=== PATIENT | female | born 1965 | race Caucasian/White ===

== ENCOUNTER 2017-12-29 16:49 | Emergency (ER) | payer MEDICARE, OTHER ==
[2017-12-29 17:15] VITALS: TEMP 97.8
[2017-12-29] MEDS ORDERED: SODIUM CHLORIDE 0.9% 500 ML 500 ML IV STA (17:17)
[2017-12-29] MEDS ORDERED: LIDOCAINE 1%-EPI 1:100,000 30 ML VIAL SQ STA (17:19)
[2017-12-29] MEDS ORDERED: LIDOCAINE 1% INJ 10MG/ML (20 ML MDV) SQ ONE (17:19)
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
[2017-12-29 18:02] LABS: Basophils # (A) 0.1 k/uL (0-0.2); Basophils % (A) 0 %; Eosinophils # (A) 0.3 k/uL (0-0.7); Eosinophils % (A) 2 %; HCT 43.5 % (34.0-46.0); HGB 14.7 gm/dL (11.4-16.0); Lymphocytes # (A) 1.5 k/uL (1.0-4.8); Lymphocytes % (A) 9 %; MCH 30.2 pg (25.0-35.0); MCHC 33.8 g/dL (31.0-37.0); MCV 89.3 fL (80.0-100.0); Mean Platelet Volume 7.9; Monocytes # (A) 0.4 k/uL (0-1.0); Monocytes % (A) 2 %; Neutrophils % (A) 86 %; Platelet Count 267 k/uL (150-450); RBC 4.87 m/uL (3.80-5.40); RDW 13.1 % (11.5-15.5); WBC 17.4 k/uL (3.8-10.6)
[2017-12-29 18:12] LABS: ALT 38 U/L (9-52); AST 58 U/L (14-36); Albumin 3.9 g/dL (3.5-5.0); Alcohol <10 mg/dL; Alkaline Phosphatase 101 U/L (38-126); Anion Gap 10 mmol/L; Blood Urea Nitrogen 18 mg/dL (7-17); Calcium 9.1 mg/dL (8.4-10.2); Carbon Dioxide 34 mmol/L (22-30); Chloride 90 mmol/L (98-107); Glucose 120 mg/dL (74-99); Potassium 3.5 mmol/L (3.5-5.1); Sodium 134 mmol/L (137-145); Total Bilirubin 0.7 mg/dL (0.2-1.3); Total Protein 7.2 g/dL (6.3-8.2)
[2017-12-29 18:23] LABS: Partial Thromboplastin Time 22.5 sec (22.0-30.0); Prothrombin Time 9.8 sec (9.0-12.0)
[2017-12-29 18:31] LABS: Creatine Kinase MB 31.9 ng/mL (0.0-2.4); Troponin I <0.012 ng/mL (0.000-0.034)
--- NOTE | 2017-12-29 18:41 | CT ---
EXAMINATION TYPE: CT brain yessi eldridge DATE OF EXAM: 12/29/2017 COMPARISON: None HISTORY: HEAD LACERATION AFTER FALL INJURY CT DLP: 1518 mGycm Automated exposure control for dose reduction was used. TECHNIQUE: CT scan of the head and cervical spine are performed without contrast. FINDINGS: Ventricles of normal size. There is no mass effect nor midline shift. There is no sign of intracranial hemorrhage. The calvarium is intact. There is large left frontal scalp hematoma and lac eration. There is 2 cm mucous retention cyst left maxillary sinus. Cervical vertebra have normal spacing and alignment. Posterior elements are intact. Facet joints are intact. Skull base appears intact. There is no evidence of cervical spine fracture. There is minimal anterior spurring at C4-5. IMPRESSION: Negative CT scan of the brain. Left frontal scalp hematoma and laceration. Negative CT scan cervical spine.
--- NOTE | 2017-12-29 18:47 | CT ---
EXAMINATION TYPE: CT ChestAbdPelvis w con DATE OF EXAM: 12/29/2017 COMPARISON: None HISTORY: HEAD LACERATION AFTER FALL INJURY CT DLP: 1118 mGycm Automated exposure control for dose reduction was used. CONTRAST: CT scan of the chest, abdomen and pelvis is performed without Oral Contrast and with IV Contrast, pat ient injected with 100 mL of Isovue 300. FINDINGS: There is coarse interstitial infiltrate in both lungs with some degree of atelectasis. Thoracic aorta appears intact. There is no evidence of aneurysm or dissection. I see no filling defects in the pulm onary arteries. Liver and spleen appear normal. There is calcification in the wall of the gallbladder. The bile ducts are not dilated. There is no adrenal mass. Kidneys show symmetric contrast opacification. There is no hydronephrosis. Ureters are not dilated. There is mild small bowel mesenteric edema. There is no retroperitoneal ebonie opathy. Abdominal aorta is intact. Bladder distends smoothly. There is no inguinal hernia. I see no intestinal wall thickening. There ar e no dilated loops. There is no sign of free air. There is no ascites. Appendix is not definitely see n. There is no sign of appendicitis. The thoracic and lumbar vertebra appear intact. The bony pelvis appears intact. Hip joints are intact . I see no rib fracture. IMPRESSION: There is mild pulmonary interstitial infiltrates and subsegmental atelectasis. No fractur e seen. Mild small bowel mesenteric edema of uncertain significance. Gallbladder wall calcification that is consistent with diabetes. No gallbladder mass seen.
[2017-12-29 18:56] LABS: Creatine Kinase 1181 U/L (30-135)
[2017-12-29 19:10] VITALS: RESP 16
--- NOTE | 2017-12-29 19:12 | XR ---
EXAMINATION TYPE: XR shoulder complete LT DATE OF EXAM: 12/29/2017 COMPARISON: NONE HISTORY: Shoulder pain TECHNIQUE: 3 views FINDINGS: I see no fracture nor dislocation. There is a 2.3 similar rounded area of osteosclerosis in the humeral neck. The joint spaces are normal. IMPRESSION: Osteosclerotic focus in the left humeral neck of uncertain significance. There is no expa nsion. The appearance is nonspecific. No fracture seen.
[2017-12-29 19:36] LABS: Appearance,Urine Clear (Clear); Bilirubin,Urine Negative (Negative); Blood,Urine Moderate (Negative); Color,Urine Yellow; Glucose,Urine (UA) Negative (Negative); Ketones,Urine Trace (Negative); Leukocyte Esterase,Urine Negative (Negative); Mucus,Urine Rare /hpf; Nitrite,Urine Negative (Negative); Protein,Urine Trace (Negative); RBC,Urine 6 /hpf (0-5); Squamous Epithelial Cell,Urine 1 /hpf (0-4); Urobilinogen,Urine <2.0 mg/dL (<2.0); WBC,Urine 1 /hpf (0-5)
[2017-12-29 19:39] LABS: Amphetamine Screen,Urine Not Detected (NotDetected); Barbiturate Screen,Urine Not Detected (NotDetected); Benzodiazepines Screen,Urine Not Detected (NotDetected); Cocaine Screen,Urine Not Detected (NotDetected); Methadone Screen, Urine Not Detected (NotDetected); Opiate Screen,Urine Not Detected (NotDetected); Oxycodone Screen, Urine Not Detected (NotDetected); Phencyclidine Screen,Urine Not Detected (NotDetected); Tricyclic Antidepressant,Urine Not Detected (NotDetected); Urn Cannabinoid Scrn Not Detected (NotDetected)
[2017-12-29 19:45] LABS: Specific Gravity,Urine 1.048 (1.001-1.035)
--- NOTE | 2017-12-29 20:21 | CT ---
EXAMINATION TYPE: CT facial bones wo con DATE OF EXAM: 12/29/2017 COMPARISON: None HISTORY: facial lacerations after fall injury CT DLP: mGycm Automated exposure control for dose reduction was used. TECHNIQUE: CT scan of the sinuses is performed without contrast, axial images are obtained, coronal r eformatted images are also reviewed. FINDINGS: There is 1.2 cm mucous retention cyst in the left maxillary sinus. There is minimal right m axillary sinus mucosal thickening. There is bilateral patency of the ostiomeatal complex. There is no evidence of a blowout fracture. Orbital margins are intact. Mandibular ring appears intact. The temp oromandibular joints are intact. Zygomatic arches appear normal. There is soft tissue air bubbles lat eral to the left zygomatic arch. There is left side facial soft tissue swelling. The maxilla is intac t. There is no evidence of an orbital mass. The nasal bone appears intact. IMPRESSION: Sinusitis. Soft tissue air and soft tissue swelling on the left side consistent with lace ration. Subcutaneous edema. No fracture seen.
[2017-12-29] MEDS ORDERED: HYDROcodone/APAP 5-325MG 1 EACH TAB PO STA (21:21)
[2017-12-29] MEDS ORDERED: DIPH,PERTUS(ACELL)TETVAC-LF 0.5 ML VIAL IM ONE (21:21)
[2017-12-29] MEDS ORDERED: TOPICAL SKIN ADHESIVE 1 EACH AMP TOPICAL ONE (21:38)
--- NOTE | 2017-12-29 21:46 | XR ---
EXAMINATION TYPE: XR hand complete LT DATE OF EXAM: 12/29/2017 COMPARISON: NONE HISTORY: Finger swelling TECHNIQUE: 3 views FINDINGS: There is possible tuft fracture of the distal phalanx of the ring finger. Metacarpals appea r developmentally short. There are no erosions. Joint spaces are normal. IMPRESSION: Possible tuft fracture.
[2017-12-29 22:04] VITALS: BP 123/71; PULSE 96
[2017-12-29] MEDS ORDERED: ACET/COD 300 MG/30 MG STARTER PACK 6 TAB BTL PO STA (22:38)
== END 2017-12-29 23:23 | disposition home or self-care (01) ==
LOC: EC 16:49
DX: S62.635A Displaced fracture of distal phalanx of left ring finger, initial encounter for closed fracture (principal); S01.81XA Laceration without foreign body of other part of head, initial encounter; S05.42XA Penetrating wound of orbit with or without foreign body, left eye, initial encounter; S46.912A Strain of unspecified muscle, fascia and tendon at shoulder and upper arm level, left arm, initial encounter; S80.12XA Contusion of left lower leg, initial encounter; R93.5 Abnormal findings on diagnostic imaging of other abdominal regions, including retroperitoneum; M54.2 Cervicalgia; Z79.899 Other long term (current) drug therapy; Z23 Encounter for immunization; W22.8XXA Striking against or struck by other objects, initial encounter; Y92.811 Bus as the place of occurrence of the external cause
CPT/HCPCS: 99285 ×2; 12015 ×2; 90471 ×2; 36415; 93005; 86900; 86901; 80053; 82550; 82553; 83605; 84484; 85025; 85610; 85730; 86850; 81001; 80306; 73030; 73130; 72125; 70486; 70450; 71260; 74177; 90715; G0480; J2001; Q9967; 80320